=== PATIENT | female | born 1940 | race Caucasian/White ===

== ENCOUNTER → 2016-12-09 | Outpatient (CLI) | payer MEDICARE, OTHER ==
--- NOTE | ~2016-12-09 | ECH ---
Transthoracic Echocardiography Report (TTE) Demographics Patient Name JANA HERNANDEZ Date of Study 12/09/2016 Patient Number [id number] Visit Number [id number] Date of 1940 Room Number Accession Number [id number] Gender Female Age 76 year(s) Referring Jevon Martin MD Director Employment [employer] [facility] Physician Bairon Wu MD Physician Interpreting Melia Damon Tire Tester Physician MD Supervising Ordering Physician Jevon Martin MD, MD/P Nurse [employer] Director Conclusions Summary Limited exam for ejection fraction. Technically good exam. The estimated left ventricular ejection fraction is 60-65%. Normal right ventricle structure and function. Procedure Type of Study TTE procedure:Echo Limited SF. Procedure Date Date: 12/09/2016 Start: 09:12 AM Technical Quality: Adequate visualization Indications:Pre-chemotherapy. Appropriate Use Criteria: 9 Height: 63 inches Weight: 163 pounds BSA: 1.77 m Rhythm: Within normal limits HR: 66 bpm BP: 112/58 mmHg M-Mode/2D Measurements LV Diastolic Dimension: 4.12 cm LV Systolic Dimension: 2.87 cm LV Septum Diastolic: 0.9 cm LV PW Diastolic: 0.9 cm AO Root Dimension: 2.6 cm LA Dimension: 3.46 cm LA volume: 54.52 ml LA volume index: 31 ml/m RV Base: 3.6 cm RV Mid: 1.8 cm RV Length: 5.9 cm TAPSE: 2.17 cm Doppler Measurements RA Area: 12.2 cm Findings Left Ventricle Normal left ventricle size and function. Right Ventricle Normal right ventricle structure and function. Left Atrium Normal left atrial size. Right Atrium Normal right atrial size. Pericardial Effusion No evidence of pericardial effusion. Miscellaneous Visualized portions of the aortic root and ascending aorta appear normal in size. Pleural Effusion No evidence of pleural effusion. Contractility Score LV regional wall motion:(0-Non visualized 1-Normal 2-Hypokinesis 3-Akinesis 4-Dyskinesis 5-Aneurysm) Signature
== END | disposition home or self-care (01) ==
LOC: CARD 08:55
DX: Z01.818 Encounter for other preprocedural examination (principal); C50.111 Malignant neoplasm of central portion of right female breast

== ENCOUNTER → 2017-01-25 | Outpatient (CLI) | payer MEDICARE, OTHER ==
--- NOTE | ~2017-01-25 | ECH ---
Transthoracic Echocardiography Report (TTE) Demographics Patient Name JANA HERNANDEZ Date of Study 01/25/2017 Patient Number [id number] Visit Number [id number] Date of 1940 Room Number Accession Number [id number] Gender Female Age 76 year(s) Referring Edelmira Mercado V Assistant Baseball Coach Shannon Silva [facility] Physician MD Jevon Wu MD Physician Interpreting Fruehcorie Lynch R Propeller Tester Physician Supervising Ordering Physician Jevon Martin MD, MD/P Nurse Stress Clerk Conclusions Summary Limited study for ejection fraction. Doppler not performed. Technically good exam. The estimated left ventricular ejection fraction is 60-65%. Procedure Type of Study TTE procedure:Echo Limited SF. Procedure Date Date: 01/25/2017 Start: 01:15 PM Technical Quality: Good visualization Indications:Edema and History of Breast Cancer, Monitoring for Herceptin . Appropriate Use Criteria: 9 Height: 63 inches Weight: 157 pounds BSA: 1.74 m Rhythm: NSR HR: 68 bpm BP: 113/58 mmHg M-Mode/2D Measurements LV Diastolic Dimension: 4.88 cm LV Systolic Dimension: 2.69 cm LV Septum Diastolic: 0.62 cm LV PW Diastolic: 0.7 cm AO Root Dimension: 2.44 cm LA Dimension: 3.58 cm RV Diastolic Dimension: 3.21 cm LA volume: 50.93 ml LA volume index: 29 ml/m RV Base: 3.3 cm RV Mid: 2.2 cm TAPSE: 3 cm Doppler Measurements RA Area: 14.14 cm Findings Left Ventricle Normal left ventricle size and function. Right Ventricle Normal right ventricle structure and function. Left Atrium Normal left atrial size. Right Atrium Normal right atrial size. Mitral Valve Normal mitral valve structure and function. Aortic Valve Normal aortic valve structure and function. Tricuspid Valve Normal tricuspid valve structure and function. Pulmonic Valve Normal pulmonic valve structure and function. Pericardial Effusion No evidence of pericardial effusion. Miscellaneous Visualized portions of the aortic root and ascending aorta appear normal in size. Pleural Effusion No evidence of pleural effusion. Signature Electronically signed by [facility]) on 01/25/2017 02:09 PM
== END | disposition home or self-care (01) ==
LOC: CARD 12:53
DX: Z51.81 Encounter for therapeutic drug level monitoring (principal); M79.89 Other specified soft tissue disorders; I10 Essential (primary) hypertension; Z85.3 Personal history of malignant neoplasm of breast; Z79.899 Other long term (current) drug therapy